=== PATIENT | male | born 1955 | race Caucasian/White ===

== ENCOUNTER 2017-02-01 03:36 | Emergency (ER) | payer BC, OTHER ==
[2017-02-01 03:50] VITALS: BP 139/89
[2017-02-01] MEDS ORDERED: ACETAMINOPHEN/CODEINE#3 (300/30mg) TAB PO ONE (05:00)
== END 2017-02-01 05:28 | disposition home or self-care (01) ==
LOC: EDBD 03:38 → ER 03:38
DX: K04.7 Periapical abscess without sinus (principal); R51 Headache